=== PATIENT | male | born 1965 | race Caucasian/White ===

== ENCOUNTER 2018-05-11 09:25 | Emergency (ER) | payer SELFPAY ==
--- NOTE | 2018-05-11 12:25 | EDM.PDOC ---
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 He had osteomyeolitis. He was on antibiotic until about 1 1/2 weeks ago. He is back here working and he is having more pain and a little swelling. He does notice some redness after being on it for a time. There is none now. He has no fever, chills, cough, chest pain, abdominal pain, nausea or vomiting. Onset: Gradual Duration: Week(s): Location: Reports: Lower Extremity, Right (foot) Quality: Reports: Sharp Severity: Severe Improves with: Reports: Immobilization Worsens with: Reports: Movement Associated Symptoms: Reports: No Other Symptoms Treatments ENGINEERING ASSISTANT: Reports: Acetaminophen, Other (see below) Other Treatments ENGINEERING ASSISTANT: tylenol3 Right 1-Hallux Pain Score (Numeric/FACES): 9 - Related Data Allergies Allergy/AdvReac Type Severity Reaction Status Date / Time No Known Allergies Allergy Verified 05/11/18 09:45 Home Meds: Home Meds Hydrocodone/Acetaminophen [Hydrocodon-Acetaminophen 5-325] 1 - 2 each PO Q6HR PRN #20 tablet 05/11/18 [Rx] Past Medical History - Past Health History Medical/Surgical History: Denies Medical/Surgical History Social & Family History - Family History Family Medical History: Noncontributory - Tobacco Use Smoking Status *Q: Never Smoker - Caffeine Use Caffeine Use: Reports: Energy Drinks - Recreational Drug Use Recreational Drug Use: No Review of Systems - Review of Systems Review Of Systems: See Below Constitutional: Reports: No Symptoms Eyes: Reports: No Symptoms Ears: Reports: No Symptoms Nose: Reports: No Symptoms Mouth/Throat: Reports: No Symptoms Respiratory: Reports: No Symptoms Cardiovascular: Reports: No Symptoms GI/Abdominal: Reports: No Symptoms Genitourinary: Reports: No Symptoms Musculoskeletal: Reports: Other (Pain and edema to right foot) ED EXAM, GENERAL - Physical Exam Exam: See Below Exam Limited By: No Limitations General Appearance: Alert, No Apparent Distress Ears: Normal External Exam Nose: Normal Inspection Head: Atraumatic, Normocephalic Neck: Normal Inspection Respiratory/Chest: No Respiratory Distress, Lungs Clear, Normal Breath Sounds Cardiovascular: Regular Rate, Rhythm, No Edema, No Murmur GI/Abdominal: Soft, Non-Tender, No Organomegaly, No Mass Back Exam: Normal Inspection Extremities: Other (Incision over where the big toe was. There is no drainage or erythema. He does have mild pain upon palpation. There is mild edema to the ball of the foot.) Course - Vital Signs Last Recorded V/S: Last Vital Signs Temp 97.4 F 05/11/18 09:36 Pulse 100 05/11/18 09:36 Resp 20 05/11/18 09:36 BP 154/112 H 05/11/18 09:36 Pulse Ox 99 05/11/18 09:36 - Orders/Labs/Meds Orders: Active Orders 24 hr Category Date Time Status Foot Comp Min 3V Rt [CR] Stat Exams 05/11/18 10:06 Taken Labs: Laboratory Tests 05/11/18 05/11/18 05/11/18 Range/Units 10:15 10:15 10:15 WBC 8.55 (4.23-9.07) K/mm3 RBC 5.56 (4.63-6.08) M/mm3 Hgb 16.4 (13.7-17.5) gm/L Hct 47.9 (40.1-51.0) % MCV 86.2 (79.0-92.2) fl MCH 29.5 (25.7-32.2) pg MCHC 34.2 (32.2-35.5) g/dl RDW Std Deviation 44.1 H (35.1-43.9) fL Plt Count 361 H (163-337) K/mm3 MPV 8.9 L (9.4-12.3) fl Neut % (Auto) 60.5 (34.0-67.9) % Lymph % (Auto) 25.6 (21.8-53.1) % Cotton % (Auto) 12.0 (5.3-12.2) % Eos % (Auto) 1.6 (0.8-7.0) Baso % (Auto) 0.1 (0.1-1.2) % Neut # (Auto) 5.16 (1.78-5.38) K/mm3 Lymph # (Auto) 2.19 (1.32-3.57) K/mm3 Cotton # (Auto) 1.03 H (0.30-0.82) K/mm3 Eos # (Auto) 0.14 (0.04-0.54) K/mm3 Baso # (Auto) 0.01 (0.01-0.08) K/mm3 ESR 12 (0-15) mm/hr C-Reactive Protein 0.7 (<1.0) mg/dL - Re-Assessments/Exams Free Text/Narrative Re-Assessment/Exam: 05/11/18 12:24 His CBC, CRP and sed rate are negative. His x-ray shows calcium deposits around the end of the tarsal bone. This could be the cause of his pain. I will refer him to Dr Barron and get him something for pain. Departure - Departure Time of Disposition: 12:25 Disposition: Home, Self-Care 01 Condition: Good Clinical Impression: Acute postoperative pain of right foot - Discharge Information *PRESCRIPTION DRUG MONITORING PROGRAM REVIEWED*: No *COPY OF PRESCRIPTION DRUG MONITORING REPORT IN PATIENT CAITY: No Prescriptions: Hydrocodone/Acetaminophen [Hydrocodon-Acetaminophen 5-325] 1 - 2 each PO Q6HR PRN #20 tablet PRN Reason: Pain Referrals: PCP,None [Primary Care Provider] - Mehdi Barron II, DPM [Physician] - 1 Week Additional Instructions: Take the hydrocodone as needed for pain. Try putting mole skin around the areas that hurt to take some pressure off of the painful areas. Follow up with Dr Barron this week. Please return if you are worse. - My Orders Last 24 Hours: My Active Orders 05/11/18 10:06 Foot Comp Min 3V Rt [CR] Stat - Assessment/Plan Last 24 Hours: My Active Orders 05/11/18 10:06 Foot Comp Min 3V Rt [CR] Stat
--- NOTE | 2018-05-11 18:33 | CR ---
Right foot: Four views of the right foot were obtained. Comparison: No previous study. Soft tissue swelling is noted. Air also appears to be within the soft tissues. Well-corticated bony densities are identified around the proximal residual first metatarsal which appear to be old. Previous amputation is seen of the first toe. Cystic change is noted within the distal aspect of the middle phalanx of the fourth toe with degenerative change. No acute fracture or other abnormality is appreciated. Impression: 1. Soft tissue swelling with small amount of soft tissue air is seen within the medial foot. 2. Well-corticated bony densities around the residual base of the first metatarsal which appear old. 3. Previous amputation. 4. Other incidental findings. No acute bony abnormality is appreciated. Diagnostic code #3
== END 2018-05-11 12:30 | disposition home or self-care (01) ==
LOC: JD.ED 09:25
DX: G89.18 Other acute postprocedural pain (principal); M79.671 Pain in right foot; Z89.411 Acquired absence of right great toe
CPT/HCPCS: 36415; 73630-26-RT; 73630-RT; 85025; 85652; 86140; 99283; 99284